=== PATIENT | male | born 1990 | race African-American/Black ===

== ENCOUNTER 2022-01-20 19:06 | Emergency (ER) | payer SELFPAY ==
[2022-01-20] MEDS ORDERED: Ondansetron ODT 4 MG TAB ONE (19:52)
[2022-01-20] MEDS ORDERED: Ibuprofen 800 MG TAB ONE (19:52)
[2022-01-21 15:09] LABS: SARS-CoV-2 PCR by NAA Not Detected (NotDetected)
== END 2022-01-20 20:05 | disposition home or self-care (01) ==
LOC: NAV ERS 19:06
DX: B34.9 Viral infection, unspecified (principal); Z20.822 Contact with and (suspected) exposure to COVID-19
CPT/HCPCS: 99283; Q0162; U0003; U0005